=== PATIENT | female | born 1965 | race Caucasian/White ===

== ENCOUNTER 2016-12-18 17:54 | Observation (INO) ==
[2016-12-18 19:10] LABS: Basophils # 0.1 K/mcL (0.0-0.2); Basophils % 1.1 %; Eosinophils # 0.3 K/mcL (0.0-0.6); Eosinophils % 4.8 %; Hematocrit 39.1 % (35.3-44.9); Hemoglobin 12.9 g/dL (11.5-15.4); Immature Granulocytes % 0.3 % (0-4); Lymphocytes # 1.5 K/mcL (0.6-4.6); Lymphocytes % 20.7 %; Mean Corpuscular Hemoglobin 28.4 pg (28.0-33.3); Mean Corpuscular Volume 85.9 fL (83.0-100.0); Mean Platelet Volume 10.5 fL (9.4-12.4); Monocytes # 0.5 K/mcL (0.0-1.3); Monocytes % 7.6 %; Neutrophils # 4.6 K/mcL (1.6-8.9); Platelet Count 169 K/mcL (140-400); Red Blood Count 4.55 M/mcL (3.82-4.97); Red Cell Distribution Width 13.2 % (11.5-14.5); Segmented Neutrophils % 65.5 %
[2016-12-18 19:12] LABS: INR 0.9; Prothrombin Time 9.9 Seconds (9.4-12.1)
[2016-12-18 19:14] LABS: Activated Partial Thrombo Time 27.2 Seconds (26.0-36.0)
[2016-12-18 19:17] LABS: BUN/Creatinine Ratio 18 (6-26); Blood Urea Nitrogen 16 mg/dL (7-20); Calcium 9.4 mg/dL (8.6-10.8); Carbon Dioxide 27 mEq/L (19-29); Chloride 96 mEq/L (98-109); Glucose 135 mg/dL (70-99); Osmolality,Calculated 279 (280-300); Potassium 4.1 mEq/L (3.5-4.5); Sodium 133 mEq/L (136-145); eGFR For African Americans > 60 (> 60); eGFR For Non-African Americans > 60 (> 60)
[2016-12-18] MEDS ORDERED: Aspirin 81 MG TAB.CHEW PO ONE (20:36)
--- NOTE | 2016-12-18 20:41 | Emergency Department Note ---
Disposition Clinical Impression: Chest pain, rule out acute myocardial infarction Disposition: Admitted As Inpatient Condition: Good Referrals: NONE,PCP [Non-Partnered Physician] - Forms: ED Satisfaction Letter Time of Disposition: 22:09 Chest Pain HPI - General Chief Complaint: ED Chest Pain Stated Complaint: jaw/L arm pain Time Seen by Provider: 12/18/16 19:54 Source: patient Limitations: no limitations Vital Signs Reviewed: Yes Nursing Notes Reviewed: Yes - History of Present Illness HPI Narrative: 51 year old female states that she has a history of midsternal chest pain that radiaes into her left jaw and arm in addition to exertional dyspnea and diaphoreiss. She states that this happened earlier in the afternoon. She states she has multiple risk factors including diabetes, HTN, hyperlipidemia, and early family hx. Deondre herself does not have a hx of acs. She states that she most recently had a cardiac cath last year that showed a small blockage of <25% in one of the vessels but that it should be managed medically. Mariam states that she had an episode on sunday but it resolved. Franco DVT/PE history. Severity scale (1-10): 9 - Related Data Home Medications Medication Instructions Recorded Confirmed BuPROPion SR (12 HR) [Wellbutrin 300 mg PO DAILY 12/17/14 11/25/16 SR] Buspirone [Buspar] 1 tab PO BID 12/17/14 11/25/16 Metoprolol 1 tab PO DAILY 12/17/14 11/25/16 Montelukast [Singulair] 10 mg PO DAILY 12/17/14 11/25/16 OXcarbazepine [Trileptal] 600 mg PO BID 12/17/14 11/25/16 Pregabalin [Lyrica] 150 mg PO BID 12/17/14 11/25/16 RisperiDONE [Risperidone Odt] 0.25 mg PO BID 12/17/14 11/25/16 Tizanidine [Zanaflex] 4 mg PO BID 12/17/14 11/25/16 metFORMIN [Glucophage] 1,000 mg PO DAILY 12/17/14 11/25/16 Lisinopril [Zestril] 2.5 mg PO DAILY 03/28/15 11/25/16 Morphine Immed Rel [Morphine 30 mg PO BID 10/31/15 11/25/16 Sulfate] Oxycodone HCl/Acetaminophen 1 each PO DAILY 10/31/15 11/25/16 [Percocet 10-325 mg Tablet] glyBURIDE [GlyBURIDE] 2.5 mg PO DAILY 03/23/16 11/25/16 Previous Rx's Medication Instructions Recorded Aspirin [Adult Low Dose Aspirin EC] 81 mg PO DAILY #30 tablet. 06/21/15 Amoxicillin/Clavulanate [Augmentin] 875 mg PO BIDWM #20 tablet 09/12/16 Ibuprofen [Motrin] 800 mg PO Q8HR #30 tablet 09/12/16 Omeprazole [PriLOSEC] 20 mg PO DAILY 20 Days 09/28/16 Amoxicillin/Clavulanate [Augmentin] 875 mg PO BID #20 tablet 11/25/16 Allergies Allergy/AdvReac Type Severity Reaction Status Date / Time No Known Allergies Allergy Verified 11/25/16 13:17 Constitutional: Denies: fever, chills, weakness, weight change Eyes: Denies: eye pain, eye discharge, vision change ENT ED: Denies: ear pain, throat pain, dental pain, hearing loss, epistaxis, congestion, dysphagia Cardiovascular: Reports: chest pain, dyspnea on exertion. Denies: palpitations , edema, syncope Respiratory: Denies: cough, dyspnea, wheezes, hemoptysis, stridor Gastrointestinal: Denies: abdominal pain, nausea, vomiting, diarrhea, constipation, hematemesis, melena, hematochezia Genitourinary: Denies: dysuria, frequency, hematuria, discharge Musculoskeletal: Denies: back pain, neck pain, arthralgia, myalgia Integumentary: Denies: rash, abrasion, lesions Neurological: Denies: headache, weakness, numbness, paresthesias, confusion, abnormal gait, vertigo Psychiatric: Denies: anxiety, depression, suicidal thoughts, homicidal thoughts , auditory hallucinations, visual hallucinations Endocrine: Denies: fatigue Hematological/Lymphatic: Denies: easy bleeding, easy bruising Allergic/Immunologic: Denies: facial swelling, urticaria Chest Pain PMH - Past Medical History Medical history: Reports: diabetes, hyperlipidemia, hypertension, migraine, renal disease, other Surgical history: Reports: appendectomy, cholecystectomy, hysterectomy, orthopedic, other, sinus surgery, other (spinal stimulator, back surgery 4, hand surgery) Psychiatric history: Reports: anxiety, bipolar, depression COLLECTION OFFICER history: Reports: other - Social History Smoking Status: Former smoker Alcohol use: Reports: occasionally Drug use: Reports: none Physical Exam - General Limitations: no limitations General appearance: alert, anxious - Head Head exam: atraumatic, normocephalic, normal inspection - Eye Eye exam: Present: normal appearance, PERRL, EOMI - Expanded Eye Exam Pupils: Left: reactive - ENT ENT exam: normal exam, normal oropharynx, mucous membranes moist - Expanded ENT Exam External ear exam: Present: normal external inspection Mouth exam: Present: normal external inspection Teeth exam: Present: normal inspection Throat exam: Present: normal inspection - Neck Neck exam: Present: normal inspection, full ROM, trachea midline - Chest Chest inspection: Present: normal inspection, symmetric chest wall rise - Respiratory Respiratory exam: Present: normal lung sounds bilaterally - Cardiovascular Cardiovascular exam: Present: regular rate, normal rhythm, normal heart sounds - Abdominal Exam Abdominal exam: Present: soft, Non-Tender. Absent: tenderness, distention, guarding, rebound, rigidity - Extremities Exam Extremities exam: Present: normal inspection, full ROM. Absent: tenderness, pedal edema - Expanded Upper Extremity Exam Shoulder exam: Present: normal inspection, full ROM Arm exam: Present: normal inspection, full ROM Elbow exam: Present: normal inspection, full ROM Forearm/Wrist exam: Present: normal inspection, full ROM Hand exam: Present: normal inspection, full ROM Vascular exam: Normal: capillary refill, radial pulse - Expanded Lower Extremity Exam Hip/Pelvis exam: Present: normal inspection, full ROM Upper leg exam: Present: normal inspection, full ROM Knee exam: Present: normal inspection, full ROM Lower leg exam: Present: normal inspection, full ROM Ankle exam: Present: normal inspection, full ROM Foot/toe exam: Present: normal inspection, full ROM Neurovascular/Tendon exam: Absent: motor deficit, sensory deficit, tendon deficit - Back Exam Back exam: Present: normal inspection, full ROM. Absent: tenderness - Neurological Exam Neurological exam: Present: alert, oriented X3 - Expanded Neurological Exam Patient oriented to: Present: person, place, time Coma Scale Eye Opening: Spontaneous Coma Scale Motor Response: Obeys Commands Coma Scale Verbal Response: Oriented Coma Scale Total: 15 - Psychiatric Psychiatric exam: Present: normal affect, normal mood - Skin Skin exam: Present: warm, dry, intact, normal color Course Course Narrative: we will do a cardiac workup on mariam and treat with ASA/nitro. - Reevaluation(s) Reevaluation #1: heart score of 4, I have offered patient admission and she has declined it at this time. I have otherwise convinced to do a repeat troponin at 2052 for re- evaluation. Mariam will take time to re-think admission. Time: 20:42 - Consultations Consultation #1: discussed case with Dr. Mayer and he accepts ptinet for admission. Mariam is agreeable to plan. Time: 22:08 Vital Signs Temperature 97.4 F L 12/18/16 17:58 Pulse Rate 81 12/18/16 17:58 Respiratory Rate 16 12/18/16 17:58 Blood Pressure 157/84 12/18/16 17:58 O2 Sat by Pulse Oximetry 96 12/18/16 17:58 Temperature 97.4 F L 12/18/16 17:58 Pulse Rate 60 12/18/16 21:41 Respiratory Rate 18 12/18/16 21:41 Blood Pressure 134/91 12/18/16 21:41 O2 Sat by Pulse Oximetry 97 12/18/16 21:41 Oxygen Delivery Oxygen Delivery Room Air Chest Pain - Lab Data Result diagrams: 12/18/16 18:53 12/18/16 18:53 Lab Results 12/18/16 12/18/16 12/18/16 Range/Units 18:53 18:53 18:53 WBC 7.1 (4.3-11.1) K/mcL RBC 4.55 (3.82-4.97) M/mcL Hgb 12.9 (11.5-15.4) g/dL Hct 39.1 (35.3-44.9) % MCV 85.9 (83.0-100.0) fL MCH 28.4 (28.0-33.3) pg MCHC 33.0 (31.6-35.5) g/dL RDW 13.2 (11.5-14.5) % Plt Count 169 (140-400) K/mcL MPV 10.5 (9.4-12.4) fL Immature Gran % 0.3 (0-4) % Seg Neutrophils % 65.5 % Lymphocytes % 20.7 % Monocytes % 7.6 % Eosinophils % 4.8 % Basophils % 1.1 % Neutrophils # 4.6 (1.6-8.9) K/mcL Lymphocytes # 1.5 (0.6-4.6) K/mcL Monocytes # 0.5 (0.0-1.3) K/mcL Eosinophils # 0.3 (0.0-0.6) K/mcL Basophils # 0.1 (0.0-0.2) K/mcL PT 9.9 (9.4-12.1) Seconds INR 0.9 APTT 27.2 (26.0-36.0) Seconds Sodium 133 L (136-145) mEq/L Potassium 4.1 (3.5-4.5) mEq/L Chloride 96 L (98-109) mEq/L Carbon Dioxide 27 (19-29) mEq/L BUN 16 (7-20) mg/dL Creatinine 0.91 (0.57-1.11) mg/dL Est GFR ( Amer) > 60 (> 60) Est GFR (Non-Af Amer) > 60 (> 60) BUN/Creatinine Ratio 18 (6-26) Glucose 135 H (70-99) mg/dL Calculated Osmolality 279 L (280-300) Calcium 9.4 (8.6-10.8) mg/dL Troponin I (0-0.03) ng/mL 12/18/16 12/18/16 Range/Units 18:53 21:07 WBC (4.3-11.1) K/mcL RBC (3.82-4.97) M/mcL Hgb (11.5-15.4) g/dL Hct (35.3-44.9) % MCV (83.0-100.0) fL MCH (28.0-33.3) pg MCHC (31.6-35.5) g/dL RDW (11.5-14.5) % Plt Count (140-400) K/mcL MPV (9.4-12.4) fL Immature Gran % (0-4) % Seg Neutrophils % % Lymphocytes % % Monocytes % % Eosinophils % % Basophils % % Neutrophils # (1.6-8.9) K/mcL Lymphocytes # (0.6-4.6) K/mcL Monocytes # (0.0-1.3) K/mcL Eosinophils # (0.0-0.6) K/mcL Basophils # (0.0-0.2) K/mcL PT (9.4-12.1) Seconds INR APTT (26.0-36.0) Seconds Sodium (136-145) mEq/L Potassium (3.5-4.5) mEq/L Chloride (98-109) mEq/L Carbon Dioxide (19-29) mEq/L BUN (7-20) mg/dL Creatinine (0.57-1.11) mg/dL Est GFR ( Amer) (> 60) Est GFR (Non-Af Amer) (> 60) BUN/Creatinine Ratio (6-26) Glucose (70-99) mg/dL Calculated Osmolality (280-300) Calcium (8.6-10.8) mg/dL Troponin I 0.01 0.00 (0-0.03) ng/mL - EKG Data EKG attestation: Yes I reviewed and interpreted this EKG. EKG results narrative: NSR with rate of 79. NO STEMI. normal intervals. 1802 no old ekg. Heart Score - Score History: Moderately Suspicious EKG: Normal Age: 45-65 Risk Factors: Equal/Greater than 3 risk factor or history of atherosclerotic disease Troponin: Less than normal limit HEART Score Total: 4
[2016-12-18] MEDS: Nitroglycerin 0.4 MG TAB.SUBL SL PRN ×2 (20:43→21:07)
[2016-12-18] MEDS ORDERED: Naloxone 0.4 MG/ML INJ IVP PRN (23:20)
[2016-12-18] MEDS ORDERED: Ondansetron 4 MG/2 ML VIAL IVP PRN (23:20)
[2016-12-18] MEDS ORDERED: clonazePAM 0.5 MG TABLET PO PRN (23:24)
[2016-12-18] MEDS ORDERED: Ipratropium 1 PUFF INHALER IH PRN (23:24)
[2016-12-18] MEDS ORDERED: Dextrose Gel 15 GM PO PRN ×2 (23:27)
[2016-12-18] MEDS ORDERED: D5% in Water 1,000 ML IVC PRN (23:27)
[2016-12-18] MEDS ORDERED: *HR* Dextrose 50 % in Water (Syg) 50 ML SYRINGE IVP PRN (23:27)
--- NOTE | 2016-12-18 23:39 | Internal Med History&Physical ---
<Tanika Montanez - Last Filed: 12/19/16 00:01> Date of Encounter: 12/19/16 Time of Encounter: 23:32 Assessment and Plan (1) Chest pain Current visit: Yes Status: Acute 1 patient had onset of sternal chest pain radiating to jaw and down left arm with associated symptoms of shortness of breath and lightheadedness. The pain was relieved with nitroglycerin. She did have a left heart catheter last year which showed mild one-vessel CAD medically managed. First troponin was 0 we will continue to trend troponins 2 continuous cardiac monitoring 3 cardiac echo 4 oxygen as needed and maintain SPO2 greater than 92% 5 continue with aspirin and statin beta blocke 6 we will continue with nitroglycerin we will add 1 inch topically-B was in a.m. and initiated on Imdur 7 consult cardiology Qualifiers: Chest pain type: unspecified Qualified Code(s): R07.9 - Chest pain, unspecified (2) Diabetes mellitus Current visit: No Status: Chronic 1 we will hold oral medication. Accu-Cheks before meals at bedtime for sinus scale insulin 2 diabetic diet Qualifiers: Diabetes mellitus type: type 2 Diabetes mellitus complication status: with unspecified complications Diabetes mellitus termite treater insulin use: without termite treater use Qualified Code(s): E11.8 - Type 2 diabetes mellitus with unspecified complications (3) Hypertension Current visit: No Status: Chronic 1 we will continue with beta favio and lisinopril Qualifiers: Hypertension type: essential hypertension Qualified Code(s): I10 - Essential (primary) hypertension (4) JAYMIE (obstructive sleep apnea) Current visit: No Status: Chronic CPAP at night (5) Bipolar disorder Current visit: No Status: Chronic 1 presently stable we will continue with home medications. Qualifiers: Active/Remission status: in remission of unspecified degree Qualified Code( s): F31.70 - Bipolar disorder, currently in remission, most recent episode unspecified Internal Medicine - H&P: HPI Chief complaint: CP Admitted From: Emergency Dept Plans for Post Hospital Care: Home History of present illness: Ms. Zamora is a 51 year old female past medical history of ulcerative sleep apnea on CPAP chest pain bipolar diabetes hypertension hyperlipidemia. Patient experiencing midsternal chest pain radiating to her left jaw and arm as well as exertional dyspnea and lightheadedness. Episode began this afternoon there were no relieving or aggravating factors she described the pain as sharp 10 out of 10. She did undergo a heart catheter last year which showed mild one-vessel CAD which was medically managed. She presented to the ER with the above complaints. ER records lab work was unremarkable troponin was 0 chest x-ray no acute process. She was given 4 baby aspirin and 2 nitroglycerin which did relieve her chest pain down to 3 out of 10. EKG sinus rhythm with PACs no ST-T wave abnormalities. She has been in for further evaluation. Presently patient does not appear to be any respiratory distress. She does complain of 3 out of 10 chest pressure nonradiating. She sinus rhythm on the monitor. Lungs sounds are clear heart sounds are regular S1 and S2 with no rubs Ricardo counseling noted abdomen soft and nontender no pedal edema. She is hemodynamically stable at this time. I reviewed this case with Dr. Mayer who agrees with plan Past Med Surg Social Fam HX - Past Medical History Medical history: diabetes, hyperlipidemia, hypertension, migraine, renal disease , other Psychiatric history: anxiety, bipolar, depression - Past Surgical History Surgical History: appendectomy, cholecystectomy, hysterectomy, orthopedic, other , sinus surgery, other (spinal stimulator, back surgery 4, hand surgery) - Social History Smoking Status: Former smoker Smokeless Tobacco Status: No Alcohol use: occasionally Drug use: none - Family History Mother Living Status: Still Living Hx Family Cardiac Disorders: Yes Hx Family Endocrine Disorder: Yes Sister Living Status: Still Living Hx Family Cardiac Disorders: Yes Hx Family Endocrine Disorder: Yes Internal Medicine - H&P: Meds Buspirone [Buspar] 15 mg PO BID 12/17/14 [History] Metoprolol XL (24 HR) Succ [Toprol XL] 25 mg PO DAILY #0 12/17/14 [History] Montelukast [Singulair] 10 mg PO DAILY 12/17/14 [History] Tizanidine [Zanaflex] 4 mg PO Q12H PRN 12/17/14 [History] metFORMIN [Glucophage] 1,000 mg PO QPM 12/17/14 [History] Aspirin [Adult Low Dose Aspirin EC] 81 mg PO DAILY #30 tablet. 06/21/15 [Rx] glyBURIDE [GlyBURIDE] 2.5 mg PO QAM 03/23/16 [History] Omeprazole [PriLOSEC] 20 mg PO DAILY 20 Days 09/28/16 [Rx] Albuterol Sulfate [Ventolin Hfa] 2 puff IH Q4H PRN 12/18/16 [History] Bupropion HCl [Wellbutrin Xl] 300 mg PO DAILY 12/18/16 [History] Flaxseed Oil [[place]-3 Flaxseed Oil] 1,000 mg PO DAILY 12/18/16 [History] Furosemide [Lasix] 20 mg PO DAILY PRN 12/18/16 [History] Ipratropium [place] 2 spray NS BID 12/18/16 [History] Ipratropium [Atrovent Inhaler] 2 puff IH QID PRN 12/18/16 [History] Lisinopril [Lisinopril] 2.5 mg PO DAILY 12/18/16 [History] Loratadine [Claritin] 10 mg PO DAILY 12/18/16 [History] Morphine Sulfate [Arymo ER] 30 mg PO Q12H 12/18/16 [History] OXcarbazepine [Oxcarbazepine] 600 mg PO BID 12/18/16 [History] [place]-3/Dha/Epa/Fish Oil [Fish Oil 1,000 mg Softgel] 1,000 mg PO BID 12/18/16 [ History] Oxycodone HCl/Acetaminophen [Percocet 7.5-325 mg Tablet] 1 each PO TID PRN 12/18 [History] Pregabalin [Lyrica] 150 mg PO BID 12/18/16 [History] clonazePAM [Klonopin] 0.5 mg PO DAILY PRN 12/18/16 [History] risperiDONE [Risperdal] 0.25 mg PO BID 12/18/16 [History] 3 Allergy/AdvReac Type Severity Reaction Status Date / Time No Known Allergies Allergy Verified 11/25/16 13:17 All Systems PM: A 10-system review of systems was performed and is negative for pertinent findings except as documented above in the HPI. - Constitutional Constitutional: no chills, no fever(s), no night sweats - EENT Eyes: no change in vision, no discharge, no pain, no photophobia Nose, mouth and throat: no dysphagia, no nasal discharge, no neck pain, no sore throat - Cardiovascular Cardiovascular ROS IM: chest pain, dyspnea on exertion, lightheadedness, no diaphoresis, no palpitations, no syncope - Respiratory Respiratory: no cough, no dyspnea, no wheezing, no excessive phlegm production - Gastrointestinal Gastrointestinal: no abdominal pain, no diarrhea, no hematemesis, no hematochezia, no melena, no nausea, no vomiting - Genitourinary Genitourinary: no change in urinary stream, no dysuria, no flank pain, no hematuria - Musculoskeletal Musculoskeletal ROS IM: no numbness, no tingling - Integumentary Integumentary IM: no rash, no unusual bruising - Neurological Neurological ROS: no confusion, no convulsions, no focal weakness, no numbness, no tingling, no tremor(s) - Hematologic/Lymphatic Hematologic/Lymphatic: no easy bruising - Constitutional Vitals: Temp Pulse Resp BP Pulse Ox 97.4 F L 60 18 144/89 97 12/18/16 17:58 12/18/16 21:41 12/18/16 22:33 12/18/16 22:33 12/18/16 21:41 General appearance: Present: A&O X 3, morbidly obese, answers questions appropriately - Head Head exam: Present: atraumatic, normocephalic - Eye Eye exam: Present: PERRL, conjuntiva pink, sclera anicteric Pupils: Present: PERRL - Neck Neck exam general surgery: Present: supple, trachea midline. Absent: lymphadenopathy - Respiratory Respiratory exam: Present: CTAB. Absent: accessory muscle use, rales, rhonchi, wheezes - Cardiovascular Cardiovascular exam: Present: RRR, +S1, +S2. Absent: diastolic murmur, gallop, rubs, systolic murmur - GI/Abdominal GI/Abdominal exam: Present: normal bowel sounds, soft, no peritoneal signs. Absent: distended, tenderness - Extremities Exam Extremities exam: Present: warm, radial pulses palpable and symmetrical. Absent : calf tenderness, cyanotic, pedal edema - Neurological Exam Neurological exam: Present: CN II-XII intact, oriented X3, no focal deficits. Absent: pronater drift, facial droop, speech deficit - Skin Skin exam: Present: dry, intact Internal Med - H&P Results - Labs CBC & Chem 7: 12/18/16 18:53 12/18/16 18:53 - EKG Data EKG shows normal: sinus rhythm - EKG Data Prior EKG available for review: yes When compared to previous EKG: there is no significant change - Diagnostic Studies Chest x-ray Additional comments: Chest X-Ray 12/18/16 18:01 IMPRESSION: 1. No active pulmonary disease. D/ / Robin Rivera MD / Robin Rivera MD Interpreting Provider: Robin Rivera MD <MorenoJanak - Last Filed: 12/19/16 05:10> Date of Encounter: 12/19/16 Internal Medicine - H&P: HPI History of present illness: Ms. Zamora is a 51 year old female All Systems PM: A 10-system review of systems was performed and is negative for pertinent findings except as documented above in the HPI. - Constitutional Vitals: Temp Pulse Resp BP Pulse Ox 97.7 F 64 13 114/55 96 12/19/16 03:52 12/19/16 03:52 12/19/16 03:52 12/19/16 03:52 12/19/16 03:52 Internal Med - H&P Results - Labs CBC & Chem 7: 12/18/16 18:53 12/18/16 18:53 - Attending Attestation I have seen and examined pt independently. I have discussed with BLUEPRINT TRACER Zo Tarik regarding the management plan. I have reviewed and agree with the documentation. Pt has hx of CAD with positive LHC. Present with chest pain, respond to NTG. Still has mild chest pain. Will follow 3 sets of troponin. Add imdur in AM. Cardio consult for further medication adjustment.
[2016-12-18] MEDS ORDERED: Nitroglycerin 1 INCH/GM PACKET TP ONE (23:51)
[2016-12-19] MEDS ORDERED: Pregabalin 75 MG CAPSULE PO ONE (00:45)
[2016-12-19] MEDS ORDERED: risperiDONE 0.25 MG TABLET PO ONE (00:46)
[2016-12-19] MEDS ORDERED: tiZANidine 4 MG TABLET PO ONE (00:48)
[2016-12-19] MEDS: *HR* Morphine Sulfate SR (12 HR) 30 MG TABLET.ER PO SCH ×3 (01:12→23:05)
[2016-12-19 06:20] LABS: Basophils # 0.1 K/mcL (0.0-0.2); Basophils % 0.8 %; Eosinophils # 0.3 K/mcL (0.0-0.6); Eosinophils % 5.3 %; Hematocrit 35.5 % (35.3-44.9); Immature Granulocytes % 0.3 % (0-4); Lymphocytes # 1.6 K/mcL (0.6-4.6); Lymphocytes % 26.4 %; Mean Corpuscular HGB Conc 33.8 g/dL (31.6-35.5); Mean Corpuscular Hemoglobin 28.5 pg (28.0-33.3); Mean Corpuscular Volume 84.3 fL (83.0-100.0); Mean Platelet Volume 10.5 fL (9.4-12.4); Monocytes # 0.5 K/mcL (0.0-1.3); Monocytes % 8.8 %; Neutrophils # 3.6 K/mcL (1.6-8.9); Platelet Count 146 K/mcL (140-400); Red Blood Count 4.21 M/mcL (3.82-4.97); Segmented Neutrophils % 58.4 %
[2016-12-19 06:46] LABS: BUN/Creatinine Ratio 18 (6-26); Blood Urea Nitrogen 14 mg/dL (7-20); Calcium 8.8 mg/dL (8.6-10.8); Carbon Dioxide 25 mEq/L (19-29); Chloride 97 mEq/L (98-109); Chol/HDL Ratio 4.6 (0-4.9); Cholesterol 181 mg/dL (< 200); Glucose 129 mg/dL (70-99); HDL Cholesterol 39 mg/dL (40-59); LDL Cholesterol,Calculated 104 mg/dL (0-99); Magnesium 1.2 mg/dL (1.6-2.6); Osmolality,Calculated 272 (280-300); Potassium 3.8 mEq/L (3.5-4.5); Sodium 130 mEq/L (136-145); Triglycerides 191 mg/dL (< 150); eGFR For African Americans > 60 (> 60); eGFR For Non-African Americans > 60 (> 60)
[2016-12-19] MEDS: Pregabalin 75 MG CAPSULE PO SCH ×2 (08:41→20:15)
[2016-12-19] MEDS: OXcarbazepine 150 MG TABLET PO SCH ×2 (08:41→20:14)
[2016-12-19] MEDS: Metoprolol XL (24 HR) Succ 25 MG TAB.ER.24H PO SCH (08:41)
[2016-12-19] MEDS: Aspirin Enteric Coated 81 MG Tablet PO SCH (08:41)
[2016-12-19] MEDS: BuPROPion XL (24 HR) 150 MG TABLET PO SCH (08:42)
[2016-12-19] MEDS: Loratadine 10 MG TABLET PO SCH (08:43)
[2016-12-19] MEDS: Isosorbide MONOnitrate (24 HR) 30 MG TAB.ER.24H PO SCH (08:43)
[2016-12-19] MEDS: risperiDONE 0.25 MG TABLET PO SCH ×2 (08:44→20:14)
[2016-12-19] MEDS: Insulin LISPRO 300 UNITS/3 ML VIAL SQ SCH ×3 (08:45→20:16)
--- NOTE | 2016-12-19 10:40 | Internal Med Progress Note ---
Date of Encounter: 12/19/16 Time of Encounter: 08:10 - Assessment and plan (1) Chest pain Current Visit: Yes Status: Acute Assessment and plan: Pt denies chest pain or SOB. Pt has +1 non-pitting edema to blanca ankles, she states this is normal for her. Echo is still pending at this time. Continue tele, ASA, statin, and BB. Cardiology was consulted and determined that further cardiac testing or evaluation is not needed at this time. Pt has been started on Imdur 30mg daily. Continue to monitor labs and vitals. Qualifiers: Chest pain type: unspecified Qualified Code(s): R07.9 - Chest pain, unspecified (2) Diabetes mellitus Current Visit: Yes Status: Chronic Assessment and plan: Continue SSI, accuchecks ac and hs, and diabetic diet. Qualifiers: Diabetes mellitus type: type 2 Diabetes mellitus complication status: with unspecified complications Diabetes mellitus snf insulin use: without snf use Qualified Code(s): E11.8 - Type 2 diabetes mellitus with unspecified complications (3) JAYMIE (obstructive sleep apnea) Current Visit: Yes Status: Chronic Assessment and plan: Continue BiPap inpt and at home. (4) Hypertension Current Visit: Yes Status: Chronic Assessment and plan: Well controlled in inpt setting, continue home medications. Qualifiers: Hypertension type: essential hypertension Qualified Code(s): I10 - Essential (primary) hypertension (5) Bipolar disorder Current Visit: Yes Status: Chronic Assessment and plan: Continue Buspar and Wellbutrin. Qualifiers: Active/Remission status: in remission of unspecified degree Qualified Code( s): F31.70 - Bipolar disorder, currently in remission, most recent episode unspecified (6) Morbid obesity with BMI of 40.0-44.9, adult Current Visit: Yes Status: Acute Assessment and plan: Chronic. Lifestyle changes. - Time Spent With Patient less than 15 minutes - Subjective Interval history: Patient denies chest pain this morning. She is aware of plan of care, echo is still pending at this time. Does not even appear that she has been taken down for the test yet. Questioned her about her +1 nonpitting ankle edema bilaterally, she says this is normal for her. She denies shortness of breath. She was wearing BiPAP on and the room, she says she has this at home and wears it every night. - Constitutional Vitals: Temp Pulse Resp BP Pulse Ox 97.6 F 65 10 119/78 97 12/19/16 07:28 12/19/16 08:30 12/19/16 07:28 12/19/16 08:30 12/19/16 07:28 General appearance: Present: cooperative, A&O X 3, morbidly obese, pleasant, no acute distress, answers questions appropriately - Head Head exam: Present: normal inspection - Eye Eye exam: Present: normal appearance, conjuntiva pink - ENT ENT exam: Present: mucous membranes moist, normal exam, normal external ear exam - Neck Neck exam general surgery: Present: normal inspection. Absent: lymphadenopathy , tenderness - Respiratory Respiratory exam: Present: CTAB. Absent: decreased breath sounds, rales, respiratory distress, rhonchi, stridor, wheezes - Cardiovascular Cardiovascular exam: Present: RRR, +S1, +S2. Absent: clicks, diastolic murmur, gallop, systolic murmur - GI/Abdominal GI/Abdominal exam: Present: distended, normal bowel sounds, soft. Absent: hernia, tenderness - Extremities Exam Extremities exam: Present: normal capillary refill, pedal edema, warm, radial pulses palpable and symmetrical Additional comments: +1 non-pitting edema to blanca ankles. - Back Exam Back exam: Present: normal inspection. Absent: rash noted, tenderness - Neurological Exam Neurological exam: Present: alert, oriented X3, no focal deficits. Absent: facial droop, speech deficit Internal Medicine: Result - Labs CBC & Chem 7: 12/19/16 05:49 12/19/16 05:49 Labs: Short CBC 12/19/16 Range/Units 05:49 WBC 6.2 (4.3-11.1) K/mcL Hgb 12.0 (11.5-15.4) g/dL Hct 35.5 (35.3-44.9) % Plt Count 146 (140-400) K/mcL Neutrophils # 3.6 (1.6-8.9) K/mcL BMP 12/19/16 05:49 Sodium 130 L Potassium 3.8 Chloride 97 L Carbon Dioxide 25 BUN 14 Creatinine 0.80 Glucose 129 H Calcium 8.8 Cardiac Enzymes 12/19/16 Range/Units 05:49 Troponin I 0.01 (0-0.03) ng/mL - ABG Interpretation ABG results: PT/INR, D-dimer PT 9.9 Seconds (9.4-12.1) 12/18/16 18:53 Consult Discharge Plan - Plan Referrals: Eve Felix, EVA [Primary Care Provider] -
[2016-12-19] MEDS ORDERED: Acetaminophen 325 MG TABLET PO PRN (13:30)
[2016-12-19] MEDS: Magnesium Oxide 400 MG TABLET PO SCH ×2 (13:58→20:14)
--- NOTE | 2016-12-19 17:03 | Electrocardiograph Report ---
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
[2016-12-19] MEDS ORDERED: *HR* Heparin 5,000 UNIT/ML VIAL SQ SCH (18:00)
[2016-12-19] MEDS ORDERED: Insulin LISPRO 300 UNITS/3 ML VIAL SQ SCH (21:00)
[2016-12-19] MEDS: tiZANidine 4 MG TABLET PO SCH (23:05)
[2016-12-20 05:30] LABS: BUN/Creatinine Ratio 12 (6-26); Blood Urea Nitrogen 10 mg/dL (7-20); Calcium 8.9 mg/dL (8.6-10.8); Carbon Dioxide 28 mEq/L (19-29); Chloride 94 mEq/L (98-109); Glucose 153 mg/dL (70-99); Magnesium 1.6 mg/dL (1.6-2.6); Osmolality,Calculated 266 (280-300); Potassium 4.1 mEq/L (3.5-4.5); Sodium 127 mEq/L (136-145); eGFR For African Americans > 60 (> 60); eGFR For Non-African Americans > 60 (> 60)
[2016-12-20 07:33] LABS: Basophils # 0.1 K/mcL (0.0-0.2); Basophils % 0.7 %; Eosinophils # 0.3 K/mcL (0.0-0.6); Eosinophils % 4.9 %; Hematocrit 35.3 % (35.3-44.9); Hemoglobin 12.1 g/dL (11.5-15.4); Immature Granulocytes % 0.4 % (0-4); Immature Platelets 4.9 % (1.1-6.1); Lymphocytes # 1.3 K/mcL (0.6-4.6); Lymphocytes % 19.9 %; Mean Corpuscular HGB Conc 34.3 g/dL (31.6-35.5); Mean Corpuscular Hemoglobin 28.3 pg (28.0-33.3); Mean Corpuscular Volume 82.7 fL (83.0-100.0); Mean Platelet Volume 11.4 fL (9.4-12.4); Monocytes # 0.7 K/mcL (0.0-1.3); Monocytes % 10.1 %; Neutrophils # 4.3 K/mcL (1.6-8.9); Platelet Count 147 K/mcL (140-400); Red Blood Count 4.27 M/mcL (3.82-4.97); Red Cell Distribution Width 12.9 % (11.5-14.5)
[2016-12-20] MEDS: BuPROPion XL (24 HR) 150 MG TABLET PO SCH (09:07)
[2016-12-20] MEDS: OXcarbazepine 150 MG TABLET PO SCH (09:07)
[2016-12-20] MEDS: Metoprolol XL (24 HR) Succ 25 MG TAB.ER.24H PO SCH (09:08)
[2016-12-20] MEDS: Pregabalin 75 MG CAPSULE PO SCH (09:08)
[2016-12-20] MEDS: Aspirin Enteric Coated 81 MG Tablet PO SCH (09:08)
[2016-12-20] MEDS: Loratadine 10 MG TABLET PO SCH (09:08)
[2016-12-20] MEDS: risperiDONE 0.25 MG TABLET PO SCH (09:08)
[2016-12-20] MEDS: Isosorbide MONOnitrate (24 HR) 30 MG TAB.ER.24H PO SCH (09:08)
[2016-12-20] MEDS: tiZANidine 4 MG TABLET PO SCH (09:08)
[2016-12-20] MEDS: Magnesium Oxide 400 MG TABLET PO SCH (09:08)
[2016-12-20 09:09] LABS: BUN/Creatinine Ratio 11 (6-26); Blood Urea Nitrogen 9 mg/dL (7-20); Calcium 8.7 mg/dL (8.6-10.8); Carbon Dioxide 24 mEq/L (19-29); Chloride 94 mEq/L (98-109); Glucose 151 mg/dL (70-99); Osmolality,Calculated 266 (280-300); Sodium 127 mEq/L (136-145); eGFR For African Americans > 60 (> 60); eGFR For Non-African Americans > 60 (> 60)
[2016-12-20] MEDS: Insulin LISPRO 300 UNITS/3 ML VIAL SQ SCH ×2 (09:10→12:53)
[2016-12-20 12:12] VITALS: BP 102/61
--- NOTE | 2016-12-20 12:17 | Discharge Summary ---
Date of Encounter: 12/20/16 Time of Encounter: 08:55 - Discharge Diagnosis (1) Chest pain Priority: Primary Status: Acute Comments: Pt denies chest pain since night before last. Echo with LVEF of 60-65%, moderate LV DD, no significant valvular dysfunction. Pt had LHC in 2 that showed mild single vessel CAD and LVEF of 65%. She denies jaw or neck pain and there is no tenderness to palpation. Pain is not reproducible with movement, palpation, or inspiration. Pt does have a history of GERD and sometimes difficulty with swallowing, epigastric area mildly tender to palpation. She states that she takes a PPI for gastritis from NSAID overuse. Recommend follow up with GI after discharge. Qualifiers: Chest pain type: unspecified Qualified Code(s): R07.9 - Chest pain, unspecified (2) Diabetes mellitus Priority: Secondary Status: Chronic Comments: A1c 6.9 one year ago. Test not repeated during this admission. Pt has been hyperglycemic since arrival. Pt states that the amount of food the hospital provides is insufficient and that she does not count carbs at home and states, ' I eat what I want." Recommend lifestyle changes and referral back to diabetes education from PCP. Qualifiers: Diabetes mellitus type: type 2 Diabetes mellitus complication status: with unspecified complications Diabetes mellitus termite treater insulin use: without termite treater use Qualified Code(s): E11.8 - Type 2 diabetes mellitus with unspecified complications (3) JAYMIE (obstructive sleep apnea) Priority: Secondary Status: Chronic Comments: BiPap at home. continue. Pt used BiPap during admission. (4) Hypertension Priority: Secondary Status: Chronic Comments: Chronic. Well controlled in hospital. Continue home medications. Qualifiers: Hypertension type: essential hypertension Qualified Code(s): I10 - Essential (primary) hypertension (5) Bipolar disorder Priority: Secondary Status: Chronic Comments: Continue home medications. Qualifiers: Active/Remission status: in remission of unspecified degree Qualified Code( s): F31.70 - Bipolar disorder, currently in remission, most recent episode unspecified (6) Morbid obesity with BMI of 40.0-44.9, adult Priority: Secondary Status: Chronic Comments: Recommend lifestyle changes. Pt states that she eats what she wants. Pt might benefit from consult to health educator. Follow up with PCP. - Discharge Medications Prescriptions: Isosorbide MONOnitrate (24 HR) [Imdur] 30 mg PO DAILY #30 tab Sodium Chloride 1 gm PO BID #8 tablet Home Medications: Buspirone [Buspar] 15 mg PO BID 12/17/14 [History] Metoprolol XL (24 HR) Succ [Toprol XL] 25 mg PO DAILY #0 12/17/14 [History] Montelukast [Singulair] 10 mg PO DAILY 12/17/14 [History] Tizanidine [Zanaflex] 4 mg PO Q12H PRN 12/17/14 [History] metFORMIN [Glucophage] 1,000 mg PO QPM 12/17/14 [History] Aspirin [Adult Low Dose Aspirin EC] 81 mg PO DAILY #30 tablet. 06/21/15 [Rx] glyBURIDE [GlyBURIDE] 2.5 mg PO QAM 03/23/16 [History] Omeprazole [PriLOSEC] 20 mg PO DAILY 20 Days 09/28/16 [Rx] Albuterol Sulfate [Ventolin Hfa] 2 puff IH Q4H PRN 12/18/16 [History] Bupropion HCl [Wellbutrin Xl] 300 mg PO DAILY 12/18/16 [History] Flaxseed Oil [[place]-3 Flaxseed Oil] 1,000 mg PO DAILY 12/18/16 [History] Furosemide [Lasix] 20 mg PO DAILY PRN 12/18/16 [History] Ipratropium [place] 2 spray NS BID 12/18/16 [History] Ipratropium [Atrovent Inhaler] 2 puff IH QID PRN 12/18/16 [History] Lisinopril [Lisinopril] 2.5 mg PO DAILY 12/18/16 [History] Loratadine [Claritin] 10 mg PO DAILY 12/18/16 [History] Morphine Sulfate [Arymo ER] 30 mg PO Q12H 12/18/16 [History] OXcarbazepine [Oxcarbazepine] 600 mg PO BID 12/18/16 [History] [place]-3/Dha/Epa/Fish Oil [Fish Oil 1,000 mg Softgel] 1,000 mg PO BID 12/18/16 [ History] Oxycodone HCl/Acetaminophen [Percocet 7.5-325 mg Tablet] 1 each PO TID PRN 12/18 [History] Pregabalin [Lyrica] 150 mg PO BID 12/18/16 [History] clonazePAM [Klonopin] 0.5 mg PO DAILY PRN 12/18/16 [History] risperiDONE [Risperdal] 0.25 mg PO BID 12/18/16 [History] Isosorbide MONOnitrate (24 HR) [Imdur] 30 mg PO DAILY #30 tab 12/20/16 [Rx] Sodium Chloride 1 gm PO BID #8 tablet 12/20/16 [Rx] Allergies/Adverse Reactions: 3 Allergy/AdvReac Type Severity Reaction Status Date / Time No Known Allergies Allergy Verified 11/25/16 13:17 Procedures/tests Complete & Pending: Procedures Performed prior 72 hours Category Date Time Status EV echocardiogram Routine Y 12/18/16 23:29 Completed Date of admission: 12/18/16 22:16 Primary care physician: Eve Feilx CNP Discharging clinician: Ela Otto Anticipated date of discharge: 12/20/16 - Patient Status Disposition: Home, Self-Care Functional capacity at discharge: independent ambulation Overall status at discharge: patient is back to baseline - Discharge Instructions Follow Up With: Eve Felix CNP [Primary Care Provider] - 01/03/17 11:00 am Additional Instructions: Follow up with your PCP as scheduled. REturn to the ER immediately if your symptoms return or worsen, or for any other problems or concerns. Resume your normal medications and activities as tolerated. - Diet and Activity Activity: increase activity as tolerated Diet: diabetic diet, low fat, low cholesterol Hospital course: Ms. Zamora is a 51 year old female with past medical history of type 2 diabetes, obstructive sleep apnea with BiPAP use, morbid obesity, hypertension, bipolar disorder. She presented to the emergency department with midsternal chest pain radiating to her left jaw and arm, as well as exertional dyspnea and lightheadedness. The episode began the afternoon of the day of admission and there were no relieving or aggravating factors. She said the pain was sharp, 10 /10. She has prior history of CAD which is being medically managed. She did report chest pain the night of admission, she has had none since. The pain is not reproducible with inspiration, movement, or palpation. Patient was placed on telemetry throughout the visit, we continued her aspirin, statin, and her beta favio. She was discussed with cardiology and was determined that no further cardiac testing or evaluation was needed. She was started on Imdur 30 mg daily and has had no chest pain. She had a LHC in May, that showed mild single vessel disease that was medically managed. Echocardiogram done yesterday showed an LVEF of 60-65% with moderate LVEDD, no significant valvular dysfunction. Her troponins were negative, chest x-ray was negative for acute process. Patient is obese, mildly deconditioned from sedentary lifestyle. She is ambulatory in her room and her gait is steady. Patient takes omeprazole due to what she reports as debilitating stomach pain from overuse of NSAIDs. Chest pain episode could have been reflux, recommend patient follow up with primary care for referral to GI for possible EGD. Patient will also continue the Imdur for chest pain. Patient's repeat labs today show hyponatremia. Patient is not having excessive fluid losses. Her magnesium was corrected yesterday. She will be sent home with sodium tablets and encouraged to increase sodium intake for a short period of time, as well as increase diet with foods higher in magnesium. Follow up with primary care for repeat labs. Patient's labs are within normal limits and stable. Patient is appropriate for discharge. - Time Spent with Patient Total time spent providing and/or coordinating discharge services: Less than 30 minutes - Constitutional Vitals: Temp Pulse Resp BP Pulse Ox 97.5 F L 74 16 102/61 95 12/20/16 11:30 12/20/16 11:30 12/20/16 11:30 12/20/16 11:30 12/20/16 11:30 General appearance: Present: cooperative, A&O X 3, morbidly obese, pleasant, no acute distress, answers questions appropriately - Head Head exam: Present: atraumatic, normal inspection, normocephalic - Eye Eye exam: Present: normal appearance, PERRL, conjuntiva pink Pupils: Present: PERRL - ENT ENT exam: Present: mucous membranes moist, normal exam, normal external ear exam - Neck Neck exam general surgery: Present: normal inspection, supple, trachea midline. Absent: lymphadenopathy, tenderness - Respiratory Respiratory exam: Present: CTAB. Absent: accessory muscle use, chest wall tenderness, rales, rhonchi, wheezes - Cardiovascular Cardiovascular exam: Present: RRR, +S1, +S2. Absent: diastolic murmur, gallop, rubs, systolic murmur - GI/Abdominal GI/Abdominal exam: Present: distended, normal bowel sounds, soft, no peritoneal signs. Absent: hepatomegaly, tenderness - Extremities Exam Extremities exam: Present: normal capillary refill, warm, radial pulses palpable and symmetrical. Absent: calf tenderness, cyanotic, pedal edema Additional comments: Pedal and ankle edema resolved. - Neurological Exam Neurological exam: Present: alert, oriented X3. Absent: facial droop, speech deficit - Skin Skin exam: Present: dry, intact, normal color, warm. Absent: rash, urticaria
[2016-12-20] MEDS: *HR* Morphine Sulfate SR (12 HR) 30 MG TABLET.ER PO SCH (12:53)
== END 2016-12-20 18:31 | disposition home or self-care (01) ==
LOC: 3BNU 17:54 → EMEROO 17:54 → 3BNU 23:24
PROVIDERS: ADMIT Internal Medicine; ATTEND Nurse Practitioner Family